=== PATIENT | female | born 1945 | race Caucasian/White ===

== ENCOUNTER 2017-12-25 12:26 | Observation (INO) | payer OTHER, MEDICARE ==
[2017-12-25] MEDS ORDERED: LR 1,000 ML IV ONE (12:55)
[2017-12-25] MEDS ORDERED: BUPIVACAINE/EPI 0.5% 30 ML SDV ONE (13:00)
[2017-12-25] MEDS ORDERED: BACITRACIN 50,000 UNITS/10 ML SYR IRR ONE (13:01)
[2017-12-25] MEDS ORDERED: VANCOMYCIN 500 MG/10 ML VIAL IV ONE (13:01)
[2017-12-25] MEDS ORDERED: THROMBIN (BOVINE) 5,000 UNIT VIAL TP ONE (13:01)
[2017-12-25] MEDS ORDERED: MIDAZOLAM 2 MG/2 ML VIAL IVP ONE (13:33)
--- NOTE | 2017-12-25 13:33 | PDANEPAE ---
ANE History of Present Illness 72 yo for microdisectomy ANE Past Medical History - Cardiovascular History Hx Hypertension: Yes Hx Arrhythmias: No Hx Chest Pain: No Hx Coronary Artery / Peripheral Vascular Disease: No Hx CHF / Valvular Disease: No Hx Palpitations: No - Pulmonary History Hx COPD: No Hx Asthma/Reactive Airway Disease: No Hx Recent Upper Respiratory Infection: No Hx Oxygen in Use at Home: No Hx Sleep Apnea: No Sleep Apnea Screening Result - Last Documented: Negative - Neurologic History Hx Cerebrovascular Accident: No Hx Seizures: No Hx Dementia: No - Endocrine History Hx Diabetes: Yes Endocrine History Comment: IDDM HAS CONT GLUCOSE MONITOR ON BACK OF LT UPPER ARM. HYPOTHYROID - Renal History Hx Renal Disorders: No - Liver History Hx Hepatic Disorders: Yes Hepatic History Comment: HEPATITIS A - Neurological & Psychiatric Hx Hx Neurological and Psychiatric Disorders: No - Cancer History Hx Cancer: Yes Cancer History Comment: BREAST - Congenital Disorder History Hx Congenital Disorders: No - GI History Hx Gastrointestinal Disorders: Yes Gastrointestinal History Comment: IBS. COLONOSCOPY 2016 - Other Health History Other Health History: LUMBAR RADICULOPATHY. INSOMNIA. RT HIP PAIN - Chronic Pain History Chronic Pain: Yes (RT HIP LOWER BACK) - Surgical History Prior Surgeries: AIMEE CATARACT. AIMEE MASTECTOMY 2003 WITH RECONSTRUCTION. VAG HYSTERECTOMY. BSO. TONSILLECTOMY ANE Review of Systems Review of Systems: - Exercise capacity METS (RN): 4 METS ANE Patient History - Allergies Allergies/Adverse Reactions: No Known Allergies Allergy (Unverified 08/29/15 11:50) - Home Medications Home Medications: Apidra TID 08/29/15 [Last Taken 12/25/17 06:00] Crestor HS 08/29/15 [Last Taken 12/24/17] Lantus 100 UNITS/ML (RX) DAILY 08/29/15 [Last Taken 12/25/17 06:00] Synthroid DAILY 08/29/15 [Last Taken 12/25/17] Aleve PRN 12/23/17 [Last Taken 12/22/17] Clonidine BID 12/23/17 [Last Taken 12/24/17] Colace BID 12/23/17 [Last Taken 12/25/17] Ibuprofen PRN 12/23/17 [Last Taken 12/22/17] Losartan-Hctz 100-25 mg Tab DAILY 12/23/17 [Last Taken 12/23/17] Metamucil BID 12/23/17 [Last Taken 12/24/17] - NPO status NPO Status: no food or drink >8 hours NPO Since - Liquids (Date): 12/25/17 NPO Since - Liquids (Time): 10:45 NPO Since - Solids (Date): 12/24/17 NPO Since - Solids (Time): 21:30 - Smoking Hx Smoking Status: Former smoker ANE Labs/Vital Signs - Vital Signs Blood Pressure: 187/80 Heart Rate: 75 Respiratory Rate: 14 O2 Sat (%): 95 Height: 5 ft 2.5 in Weight: 60.328 kg ANE Physical Exam - Airway Neck exam: decreased ROM Mallampati Score: Class 3 Mouth exam: normal dental/mouth exam - Pulmonary Pulmonary: no respiratory distress - Cardiovascular Cardiovascular: regular rate and rhythym - ASA Status ASA Status: III ANE Anesthesia Plan Anesthesia Plan: general endotracheal anesthesia Specialized Airway: video laryngoscope
[2017-12-25] MEDS ORDERED: fentaNYL 100 MCG/2 ML INJ ONE ×2 (13:38→15:47)
[2017-12-25] MEDS ORDERED: PROPOFOL/EMULSION 500 MG/50 ML BOTTLE IV ONE (13:38)
[2017-12-25] MEDS ORDERED: REMIFENTANIL HCL 1 MG VIAL ONE (13:38)
[2017-12-25] MEDS ORDERED: ROCURONIUM 50 MG/5 ML VIAL ONE (13:41)
[2017-12-25] MEDS ORDERED: CEFAZOLIN 2 GM/DEXTROSE/100 ML BAG IV ONE (14:08)
[2017-12-25] MEDS ORDERED: TRANEXAMIC ACID 1,000 MG in NS 100 ML IV ONE (14:10)
[2017-12-25] MEDS ORDERED: ceFAZolin 2 GM/DEXTROSE 100 ML IV ONE (14:10)
--- NOTE | 2017-12-25 14:11 | PDHPUP ---
History & Physical Update H&P update statement: This history and physical update is based on an assessment of the patient which was completed after admission or registration (within 24 hours), but prior to the surgery/procedure. H&P update: H&P reviewed & patient examined (No changes. surgery as planned.)
[2017-12-25] MEDS ORDERED: ENALAPRILAT DIHYDRATE 1.25 MG/ML VIAL IVP PRN (15:59)
[2017-12-25] MEDS ORDERED: HYDROmorphONE/DILAUDID 1 MG/ML INJ IVP PRN (15:59)
[2017-12-25] MEDS ORDERED: ONDANSETRON 4 MG/2 ML VIAL IVP PRN ×2 (15:59→18:56)
[2017-12-25] MEDS ORDERED: fentaNYL 100 MCG/2 ML INJ IVP PRN (15:59)
[2017-12-25] MEDS ORDERED: LABETALOL HCL 5 MG/ML 20 ML MDV IVP PRN (15:59)
[2017-12-25] MEDS ORDERED: PROMETHAZINE HCL 25 MG/ML INJ IVP PRN (15:59)
[2017-12-25] MEDS ORDERED: NALOXONE HCL 0.4 MG/ML INJ IVP PRN (15:59)
--- NOTE | 2017-12-25 16:21 | SUROPNOTE ---
[facility] Operative Report - Surgery Date: 12/25/17 Pre-operative Diagnosis: L4/5 Herniated nucleus pulposus Lower extremity radiculopathy Post-operative Diagnosis: Same Procedure: Right L4/5 microdiscectomy, use of MEP, EMG, and SSEP neuromonitoring Surgeon: Hal Redd MD Anesthesia: General endotracheal anesthesia Findings: As expected Estimated Blood Loss: 5mL Drains: None Specimens: None Complications: None Condition: Transferred to PACU in stable condition. Implants: None Indications: This patient has been diagnosed with a herniated nucleus pulposus. I have explained all options of treatment for the patient, and the patient has elected to proceed with operative management. I have explained all risks, benefits, and alternatives of the proposed procedure. The risks that we have discussed include , blindness, nerve damage, recurrent disc herniation, infection, dural tear, failure of surgery to alleviate pre-operative symptoms, instability , and possible need for further operation. In addition to the aforementioned procedure, I also discussed with the patient that other procedures may be indicated during the course of surgery. The patient expressed understanding of this. Pre-operative: The proposed incision site was marked in the pre-operative holding area by me. The patient was then taken to the operating room in stable condition. Following smooth induction of general anesthesia, the patient was positioned prone on a Farrukh table with all down surfaces well-padded. The patient was then prepped and draped in the usual sterile fashion. Pre-operative antibiotics and tranexamic acid were administered within one hour of the incision. A surgical timeout was performed, and all parties involved in the procedure were in agreement on the correct patient, location, and procedure to be performed. Level identification: The proposed L4/5 level was identified using C-arm fluoroscopy and the skin was marked for the proposed incision. A spinal needle was inserted under fluoroscopic guidance to the level of the decompression to be performed, 1cm lateral from midline. Following radiographic confirmation of proposed operative trajectory, a 25mm longitudinal incision was made through both the skin and fascia in an expected trajectory. Electrocautery was used to coagulate any bleeding vessels identified above the level of the fascia. A blunt probe was then passed through the fascial incision and docked on the lateral pars of the proposed level of dissection. Serial dilation was then performed, up to a size that would accommodate placement of a Metrx decompression tube. A sterile articulating arm was then attached to the table and affixed to the tube. Proper trajectory was again confirmed by lateral radiograph. The tube was docked on the caudal aspect of the cephalad level. Surgical microscope use: A surgical microscope was utilized throughout the decompressive portion of this case. This was deemed necessary for safe and accurate surgical decompression of affected nerve roots. Hemilaminotomy: A high-speed arely was used to perform a hemilaminotomy of the affected level. The ligamentum flavum was elevated from the dura using blunt dissectors, and resected using Kerrison rongeurs. Using a dural retractor, the dural sac was retracted medially to allow for visualization of the affected disc space. Any extruded disc fragments were excised at this time. Using a #11 blade on a long handle, a cruciate annulotomy was performed. A nerve hook was then used to probe the disc space and nucleus pulposus. A disc punch was passed into the disc space, and any loose or easily freed disc fragments were removed. Any bleeding epidural vessels were coagulated using bipolar cautery and all dural retractors were removed. A radiograph was taken to demonstrate the location of the microdiscectomy, with instruments placed to identify the operative disc space. Closure: The surgical field was then copiously irrigated with sterile saline. Vancomycin powder was then applied to the surgical field. #1 braided and absorbable interrupted sutures were used to repair the fascia. Then 2-0 interrupted sutures were used to repair the dermal layer, and a separate 3-0 monofilament suture was used to repair the subcutaneous layer in a running fashion. All sutures used were absorbable. Topical adhesive was then applied to the skin and allowed to dry. A sterile island dressing was applied over the surgical incision. A surgical count was performed before initiation of closure and following the procedure, and all were correct. I was present for the entire procedure. Surgical microscope use: A surgical microscope was utilized throughout the decompressive portion of this case. This was deemed necessary for safe and accurate surgical decompression of affected nerve roots. Neuromonitoring: Neuromonitoring was deemed necessary for a safe procedure. EMG, MEP, and SSEP modalities were used. Recovery: The patient was extubated uneventfully in the operating room. The patient was taken to the recovery room in stable condition. Sequential compression devices for VTE prophylaxis were applied to the patients lower extremities, and were ordered to be used while the patient was non-ambulatory. Chemical VTE prophylaxis was considered to be contraindicated for this patient because of the risk of bleeding near the epidural space. Hal Redd MD
[2017-12-25] MEDS ORDERED: ONDANSETRON DISINTEGRATING 4 MG TAB PO PRN (18:56)
[2017-12-25] MEDS ORDERED: diphenhydrAMINE 25 MG CAP PO PRN (18:56)
[2017-12-25] MEDS ORDERED: POLYETHYLENE GLYCOL 3350 17 GM PKT PO PRN (18:56)
[2017-12-25] MEDS ORDERED: MAGNESIUM HYDROXIDE 30 ML UDCUP PO PRN (18:56)
[2017-12-25] MEDS ORDERED: LACTULOSE 20 GM/30 ML UDCUP PO PRN (18:56)
[2017-12-25] MEDS ORDERED: BISACODYL 10 MG SUPP PR PRN (18:56)
[2017-12-25] MEDS: INSULIN GLULISINE SQ SCH ×2 (20:10→23:18)
[2017-12-25] MEDS: FAMOTIDINE 20 MG TAB PO SCH (21:43)
[2017-12-25] MEDS: ACETAMINOPHEN 500 MG TAB PO SCH (21:43)
[2017-12-25] MEDS: SENNOSIDES/DOCUSATE SODIUM TAB PO SCH (21:43)
[2017-12-25] MEDS: ceFAZolin 2 GM/DEXTROSE 100 ML IV SCH (21:44)
[2017-12-26 05:02] LABS: PLATELET COUNT 313 10^3/uL (150-400)
[2017-12-26] MEDS ORDERED: LEVOTHYROXINE 88 MCG TAB PO SCH (06:15)
[2017-12-26] MEDS: ACETAMINOPHEN 500 MG TAB PO SCH (06:46)
[2017-12-26] MEDS: ceFAZolin 2 GM/DEXTROSE 100 ML IV SCH (06:51)
[2017-12-26] MEDS: oxyCODONE IR 5 MG TAB PO PRN ×3 (06:51→10:53)
[2017-12-26 07:47] VITALS: BP 170/88
[2017-12-26] MEDS: INSULIN GLULISINE SQ SCH (07:51)
[2017-12-26] MEDS: FAMOTIDINE 20 MG TAB PO SCH (07:53)
[2017-12-26] MEDS: SENNOSIDES/DOCUSATE SODIUM TAB PO SCH (07:53)
[2017-12-26] MEDS ORDERED: INSULIN LISPRO 100 UNIT/ML SC ONE (08:38)
[2017-12-26] MEDS ORDERED: INSULIN GLARGINE 100 UNITS/ML UNIT SC SCH (09:00)
[2017-12-26] MEDS ORDERED: LOSARTAN/HCTZ 50/12.5 1 TAB PO SCH (09:00)
--- NOTE | 2017-12-26 10:16 | PDIAF ---
- Diagnosis Diagnosis: s/p microdiscectomy Code Status: Full Code - Medication Management Discharge Medications: Medications to Continue on Transfer Acetamn/Diphenhydramine 500/25 [Tylenol PM (*)] 2 each PO HS 12/25/17 [Last Taken Unknown] Docusate Sodium [Colace 100 MG (*)] 100 mg PO BID 12/25/17 [Last Taken Unknown] Ibuprofen [Motrin (*)] 400 mg PO DAILY PRN 12/25/17 [Last Taken Unknown] Insulin Glargine [Lantus 100 UNITS/ML (*)] 9 units SC DAILY 12/25/17 [Last Taken Unknown] Insulin Glulisine [APIDRA SOLOSTAR] 0 unit SQ TID 12/25/17 [Last Taken Unknown] Levothyroxine [Synthroid 88 mcg (*)] 88 mcg PO DAILY06 12/25/17 [Last Taken Unknown] Losartan/Hydrochlorothiazide [Losartan-Hctz 100-25 mg Tab] 1 each PO DAILY 12/25 [Last Taken Unknown] Naproxen Sodium [Aleve 220 MG (*)] 220 mg PO BID PRN 12/25/17 [Last Taken Unknown] Psyllium Husk (with Sugar) [Metamucil Packet] 1 each PO BID 12/25/17 [Last Taken Unknown] Rosuvastatin Calcium [Crestor] 10 mg PO HS 12/25/17 [Last Taken Unknown] clonIDINE [Catapres (*)] 0.2 mg PO BID@08,12 12/25/17 [Last Taken Unknown] Famotidine [Pepcid 20 MG (*)] 20 mg PO BID tab 12/26/17 [Last Taken Unknown] Polyethylene Glycol 3350 [Miralax 17 gm (*)] 17 gm PO DAILY PRN pkt 12/26/17 [ Last Taken Unknown] Sennosides/Docusate Sodium [Senokot-S] 1 - 2 tab PO BID tab 12/26/17 [Last Taken Unknown] Discharge Medications: Refer to the Discharge Home Medication list for PRN reason. - Orders Services needed: Home Care, Physical Therapy, Occupational Therapy Home Care Face to Face: I certify that this patient was under my care and that I had the required [id number] encounter meeting the encounter requirements on the discharge day. My findings support the fact that the patient is homebound as defined in Home Care Face to Face Continued: [facility] Chapter 7 Medicare Benefits Manual 30.1.1 , The condition of the patient is such that there exists a normal inability to leave home and consequently, leaving home would require a considerable and taxing effort. Diet Recommendation: no restrictions on diet Diet Texture: Regular Texture Diet - Follow Up Care Current Providers and Referrals: Hal Redd MD [Medical Doctor] - follow up as scheduled (2 weeks) Becky Mobley MD [Primary Care Provider] -
--- NOTE | 2017-12-26 12:35 | ASMTLACE ---
LACE Length of stay for Answers: 1 day current admission Acuity / Level of Answers: No Care: Did the patient have an inpatient admission? Comorbidities - select Answers: Any tumor (including all that apply lymphoma or leukemia) Diabetes (uncontrolled or controlled) Opioid dependence / Chronic pain Other Notes: HTN; Hep A # of Emergency department Answers: 0 visits in the last 6 months Score: 9 Date Signed: 12/26/2017 12:14 PM Electronically Signed By:DEEDEE Hammer
--- NOTE | 2017-12-26 12:36 | ASMTCMCOM ---
CM Note CM Note Notes: Pt medically stable for d/c with [facility] PT/OT. Orders to be obtained via [employer]. Date Signed: 12/26/2017 12:15 PM Electronically Signed By:DEEDEE Hammer
--- NOTE | 2017-12-26 14:37 | ASDISCHSUM ---
Discharge Information Plan Status:Home with Home Health Medically Cleared to Leave: Discharge Date:12/26/2017 11:02 AM D/C Disposition:Home Health Service ADT D/C Disposition:Home, Routine, Self-Care Projected Discharge Date:12/26/2017 11:00 AM Transportation at D/C:Family Discharge Delay Reason: Follow-Up Date:12/26/2017 11:00 AM Discharge Slot: Final Diagnosis: Placement Information Referral Type:*Home Health Care Services Referral ID:[id number] Provider Name:[facility] Address 1:[address] [place] [address] Address 2: City:[place] Selection Factors: State:[place] Patient Contact Information Contact Name:AJRED Relationship: Address:[address] Home Phone: City:[place] Alternate Phone: State/Zip Code:[place] [address] Email: Financial Information Financial Class:Medicare Primary Plan Desc:MEDICARE OUTPATIENT Primary Plan Number:[id number] Secondary Plan Desc:[employer]/MDR SUPPLEMENT Secondary Plan Number:[id number] Assessment Information LACE LACE Length of stay for Answers: 1 day current admission Acuity / Level of Answers: No Care: Did the patient have an inpatient admission? Comorbidities - select Answers: Any tumor (including all that apply lymphoma or leukemia) Diabetes (uncontrolled or controlled) Opioid dependence / Chronic pain Other Notes: HTN; Hep A # of Emergency department Answers: 0 visits in the last 6 months Score: 9 Date Signed: 12/26/2017 12:14 PM Electronically Signed By:DEEDEE Hammer [facility] CM Progress Note CM Note CM Note Notes: Pt medically stable for d/c with [facility] PT/OT. Orders to be obtained via [employer]. Date Signed: 12/26/2017 12:15 PM Electronically Signed By:DEEDEE Hammer Intervention Information
--- NOTE | 2017-12-30 16:29 | POSTANESTH ---
Post Anesthetic Evaluation Cardiovascular Status: Normal, Stable Respiratory Status: Normal, Stable Level of Consciousness/Mental Status: Can Participate in Eval Pain Control: Adequate, Prn Tx Ordered Nausea/Vomiting Control: Adequate, Prn Tx Ordered Complications Possibly Related to Anesthesia: None Noted
--- NOTE | 2018-01-02 08:57 | GDS ---
Janette underwent an uneventful right L4-5 MIS decompression on 12/25. She eventually cleared physica l therapy, was able to ambulate just fine, and had no immediate complications from the procedure. INSTRUCTIONS FOR DISCHARGE: The patient is going to see me in my office in a couple of weeks for a w ound check. She has been prescribed narcotic pain medication for her recovery. She is not to bend, lift, or twist over the next 6 weeks. She has an instruction booklet, as well as my cell phone if moise needs any further information. /[id number]/MODL
== END 2017-12-26 11:02 | disposition home health service (06) ==
LOC: FSGY 12:26 → F3N 18:53
PROVIDERS: ADMIT Orthopaedic Surgery Orthopaedic Surgery of the Spine; ATTEND Orthopaedic Surgery Orthopaedic Surgery of the Spine
PROC: 4A1004G Monitoring of Central Nervous Electrical Activity, Intraoperative, Open Approach (ICD-10-PCS; principal; 2017-12-25 13:45)
PROC: 01NB0ZZ Release Lumbar Nerve, Open Approach (ICD-10-PCS; principal; 2017-12-25 13:45)
DX: M51.16 Intervertebral disc disorders with radiculopathy, lumbar region (principal); M51.26 Other intervertebral disc displacement, lumbar region; I10 Essential (primary) hypertension; E11.9 Type 2 diabetes mellitus without complications; Z85.3 Personal history of malignant neoplasm of breast; Z79.4 Long term (current) use of insulin
CPT/HCPCS: 63030; 76001; 97161; 97166; G8978; G8979; G8980; G8987; G8988; G8989; J0690; J1815; J2250; J2704; J3010; J3370

== ENCOUNTER → 2018-02-13 | Outpatient (CLI) | payer OTHER, MEDICARE | LOC: CIMAGING 11:41 | PROVIDERS: ATTEND Internal Medicine | DX: Z01.811 Encounter for preprocedural respiratory examination (principal); J98.09 Other diseases of bronchus, not elsewhere classified | CPT/HCPCS: 36415-PO; 71046-PO; G0472 ==